=== PATIENT | female | born 1965 | race Two or more races ===

== ENCOUNTER 2019-11-13 20:49 | Inpatient (IN) | payer MEDICAID ==
[~2019-11-13] VITALS: Ht 154.9 cm; Wt 61.2 kg
[2019-11-13 21:30] VITALS: BP 100/61
[2019-11-13 23:09] VITALS: BP 100/61
--- NOTE | 2019-11-13 23:49 | NUR ---
RN NOTES PM SHIFT DIRECT ADMIT PATIENT FROM [place], ARRIVED IN UNIT AT 21:56. ALERT AND ORIENTED X4, STABLE ON ROOM AIR, COMPLAINING OF ABDOMINAL PAIN, DENIES VOMITING, AFEBRILE, BP LOW, SBP 100, WITH DIZZINESS ON STANDING. SODIUM 117, LACTIC ACID 4.2, WAS GIVEN 3L NS, FLAGYL AND CEFEPIME, SODIUM 128, LACTIC ACID 1.7. CT OF ABDOMEN DONE, NO EVIDENCE OF THORACIC OR ABDOMINAL AORTIC DISSECTION OR ANEURYSM, NO PULMONARY INFILTRATE, NO BOWEL OBSTRUCTION. LAST BM 11/12/19. SKIN INTACT, AMBULATES, INDEPENDENT WITH SELF CARE. NOTIFIED PROPOSAL DIRECTOR FUNES OF ADMISSION, AWAITING ADMISSION ORDERS.
[2019-11-14] MEDS ORDERED: MAG HYDROX/AL HYDROX/SIMETH 30 ML UDC PO PRN (00:30)
[2019-11-14] MEDS ORDERED: Z GUARD REMEDY 2 OZ OINT TP PRN (00:30)
[2019-11-14] MEDS ORDERED: MORPHINE SULFATE INJ 2 MG/ML DISP.SYRIN IV PRN (00:30)
[2019-11-14] MEDS ORDERED: ONDANSETRON HCL/PF 4 MG/2 ML VIAL IVP PRN (00:30)
[2019-11-14] MEDS ORDERED: MAGNESIUM HYDROXIDE 30 ML UDC PO PRN (00:30)
[2019-11-14] MEDS ORDERED: ACETAMINOPHEN 325 MG TABLET PO PRN (00:30)
[2019-11-14] MEDS: IV NS 0.9% 1,000 ML IV PRN ×2 (00:49→18:55)
--- NOTE | 2019-11-14 06:43 | NUR ---
RN NOTES PM SHIFT PATIENT ALERT AND ORIENTED X4, ON ROOM AIR, NO COMPLAIN OF ABDOMINAL PAIN, NO VOMITING, TOLERATING CLEAR LIQUID, VOIDING SPONTANEOUSLY, NS AT 75 ML/HR, AM LABS INCLUDING AIC
--- NOTE | 2019-11-14 07:42 | NUR ---
RN MS NOTES PT IN BED, AWAKE, ALERT AND ORIENTED, NO COMPLAINT OF PAIN, RESPIRATIONS NORMAL AND NOT LABORED, IV FLUIDS INFUSING WELL, CALL LIGHT WITHIN REACH, KEPT WARM AND COMFORTABLE IN BED.
[2019-11-14 08:00] VITALS: BP 123/74
[2019-11-14 08:31] LABS: BASOPHILS % (AUTO) 0.3 % (0.0-2.0); EOSINOPHILS % (AUTO) 0.8 % (0.0-6.0); HEMATOCRIT 38 % (33-45); LYMPHOCYTES # (AUTO) 1.5 /CMM (0.8-4.8); LYMPHOCYTES % (AUTO) 33.4 % (20.0-44.0); MEAN CORPUSCULAR HGB CONC 34 g/dl (31.0-36.0); MEAN CORPUSCULAR VOLUME 93 fL (82-100); MONOCYTES # (AUTO) 0.6 /CMM (0.1-1.30); MONOCYTES % (AUTO) 12.9 % (2.0-12.0); NEUTROPHILS # (AUTO) 2.4 /CMM (1.8-8.9); NEUTROPHILS % (AUTO) 52.6 % (43.0-81.0); PLATELET COUNT (AUTO) 329 /CMM (150-450); RED BLOOD CELL COUNT(AUTO) 4.09 MIL/uL (4.0-5.2); WHITE BLOOD COUNT (AUTO) 4.6 K/uL (4.3-11.0)
[2019-11-14 09:56] LABS: ALBUMIN 3.6 g/dL (3.4-5.0); BILIRUBIN,TOTAL 0.5 mg/dL (0.2-1.0); CALCIUM, SERUM 8.7 mg/dL (8.5-10.1); CREATININE 0.7 mg/dL (0.6-1.3); MAGNESIUM 1.9 mg/dL (1.8-2.4); PHOSPHORUS 3.6 mg/dL (2.5-4.9); POTASSIUM 3.9 mmol/L (3.5-5.1)
[2019-11-14 10:01] LABS: THYROID STIMULATING HORMONE 2.628 uIU/mL (0.358-3.74)
[2019-11-14 14:45] LABS: APPEARANCE,URINE CLEAR (CLEAR); BILIRUBIN,URINE NEGATIVE (NEGATIVE); BLOOD, URINE TRACE-INTA Ery/uL (NEGATIVE); COLOR,URINE YELLOW (YELLOW); KETONES,URINE TRACE (NEGATIVE); LEUKOCYTE ESTERASE ,URINE NEGATIVE (NEGATIVE); NITRITE, URINE NEGATIVE (NEGATIVE); PH,URINE 7.5 (5.0-8.0); PROTEIN,URINE NEGATIVE (NEGATIVE); UGLUCOSE NEGATIVE (NEGATIVE); UROBILINOGEN,URINE 0.2 EU/dL (0.2)
[2019-11-14 15:00] LABS: BACTERIA,URINE None seen /HPF (None Seen); RBC,URINE 0-2 /HPF (0-2); SQUAMOUS EPITHELIAL CELL,UR Few /HPF (None Seen); WBC,URINE 0-2 /HPF (0-3)
[2019-11-14 16:00] VITALS: BP 136/72
--- NOTE | 2019-11-14 18:13 | NUR ---
RN MS NOTES PT IN BED, AWAKE, ALERT AND ORIENTED, WITH COMPLAINT OF SLIGHT ABDOMINAL PAIN BUT DOES NOT WANT TO HAVE ANY PAIN MED AT THIS TIME, IV FLUIDS INFUSING WELL, TOLERATING SOFT DIET, AMBULATES TO THE BATHROOM WITH STEADY GAIT, ALL NEEDS ATTENDED.
--- NOTE | 2019-11-14 19:15 | NUR ---
MS RN NOTE RECEIVED PT IN STABLE CONDITION A/O X4, NOTED WITH FAMILY AT BEDSIDE. NO SIGNS OF SOB OR DISTRESS, PT STATES THAT PAIN IS CURRENTLY MANAGEABLE. IV IN R AC #[address] WITH IVF INFUSING. ALL CURRENT NEEDS ATTENDED TO. BED LOW, LOCKED, UPPER RAILS UP, AND CALL LIGHT WITHIN REACH. WILL CONT. TO MONITOR.
[2019-11-14] MEDS: HYDROCODONE/APAP 5/325MG 1 EACH TABLET PO PRN (20:54)
--- NOTE | 2019-11-14 20:54 | NUR ---
MS RN NOTE PT C/O ABD PAIN 04/06. NORCO 5/325 MG PO GIVEN. WILL CONT. TO MONITOR.
[2019-11-14 22:26] VITALS: BP 111/71
[2019-11-14 22:28] VITALS: BP 128/68
--- NOTE | 2019-11-15 06:35 | NUR ---
MS RN NOTE PT REMAINS IN STABLE CONDITION A/O X4, RESTING IN BED. NO SIGNS OF SOB OR DISTRESS, PT STATES THAT PAIN IS CURRENTLY MANAGEABLE. IV IN R AC #[address] WITH IVF INFUSING. ALL CURRENT NEEDS ATTENDED TO. BED LOW, LOCKED, UPPER RAILS UP, AND CALL LIGHT WITHIN REACH. WILL CONT. TO MONITOR AND ENDORSE TO NEXT SHIFT FOR THADDEUS.
[2019-11-15 06:37] LABS: BASOPHILS % (AUTO) 0.4 % (0.0-2.0); EOSINOPHILS % (AUTO) 1.7 % (0.0-6.0); HEMATOCRIT 36 % (33-45); HEMOGLOBIN 12.3 g/dL (11.5-14.8); LYMPHOCYTES # (AUTO) 2.2 /CMM (0.8-4.8); LYMPHOCYTES % (AUTO) 45.7 % (20.0-44.0); MEAN CORPUSCULAR HGB CONC 34 g/dl (31.0-36.0); MEAN CORPUSCULAR VOLUME 94 fL (82-100); MONOCYTES # (AUTO) 0.7 /CMM (0.1-1.30); MONOCYTES % (AUTO) 14.3 % (2.0-12.0); NEUTROPHILS # (AUTO) 1.8 /CMM (1.8-8.9); NEUTROPHILS % (AUTO) 37.9 % (43.0-81.0); PLATELET COUNT (AUTO) 310 /CMM (150-450); RED BLOOD CELL COUNT(AUTO) 3.84 MIL/uL (4.0-5.2); WHITE BLOOD COUNT (AUTO) 4.8 K/uL (4.3-11.0)
[2019-11-15 07:01] LABS: CREATININE 0.7 mg/dL (0.6-1.3); MAGNESIUM 1.9 mg/dL (1.8-2.4); PHOSPHORUS 4.3 mg/dL (2.5-4.9)
--- NOTE | 2019-11-15 07:30 | NUR ---
PT RECEIVED RESTING COMFORTABLY IN BED. NO S/S OR C/O PAIN OR DISTRESS NOTED. SIDE RAILS UP X2, CALL LIGHT LEFT WITHIN REACH. WILL CONTINUE PLAN OF CARE.
[2019-11-15 08:00] VITALS: BP 112/73
[2019-11-15] MEDS ORDERED: ACET325T53 PO (11:25)
[2019-11-15] MEDS: HYDROCODONE/APAP 5/325MG 1 EACH TABLET PO PRN (11:29)
[2019-11-15 12:34] LABS: OCCULT BLOOD STOOL NEGATIVE (NEGATIVE)
--- NOTE | 2019-11-15 16:00 | NUR ---
DISCHARGE INSTRUCTION GIVEN ORDERED. ENCOURAGED TO FOLLOW UP WITH PRIMARY INSTRUCTED. ALL QUESTIONS AND CONCERNS ADDRESSED. PATIENT VERBALIZED UNDERSTANDING. MEDICATION RECONCILIATION FORM COMPLETED AND COPY GIVEN TO PATIENT. IV REMOVED WITH CATHETER INTACT, PRESSURE DRESSING APPLIED. PATIENT TAKEN TO VEHICLE VIA WHEELCHAIR WITH ALL PERSONAL BELONGINGS, ACCOMPANIED BY STAFF AND FAMILY MEMBER. NO DISTRESS NOTED AT TIME OF DEPARTURE.
== END 2019-11-15 16:00 | disposition home or self-care (01) | DRG 532 ==
LOC: MEDSG2 21:46
PROVIDERS: ADMIT Registered Nurse; ATTEND Registered Nurse
DX: D25.9 Leiomyoma of uterus, unspecified (principal); K58.9 Irritable bowel syndrome, unspecified
CPT/HCPCS: 36415; 76856-TC; 80048-TC; 80053-TC; 80061-TC; 81000-TC; 82272-TC; 83605-TC; 83735-TC; 84100-TC; 84443-TC; 84702-TC; 85025-TC; 87045-TC; 87081-TC; G0378; J7030